=== PATIENT | female | born 1945 | race Native Hawaiian/Other Pacific Islander ===

== ENCOUNTER 2016-10-10 12:34 | Outpatient (CLI) | payer OTHER | END 2016-10-10 23:00 | disposition home or self-care (01) | LOC: CT 12:34 | DX: G81.94 Hemiplegia, unspecified affecting left nondominant side (principal) ==

== ENCOUNTER 2016-10-13 09:11 | Outpatient (CLI) | payer OTHER | END 2016-10-13 20:47 | disposition home or self-care (01) | LOC: MAMMO 09:11 | DX: Z12.31 Encounter for screening mammogram for malignant neoplasm of breast (principal) | CPT/HCPCS: G0202-TC ==

== ENCOUNTER 2016-11-07 12:15 | Outpatient (CLI) | payer OTHER | END 2016-11-07 14:15 | disposition home or self-care (01) | LOC: RAD 12:15 | DX: M79.605 Pain in left leg (principal); Z86.718 Personal history of other venous thrombosis and embolism ==

== ENCOUNTER → 2017-01-27 23:21 | Outpatient (CLI) | payer OTHER | END | disposition home or self-care (01) | LOC: AMB 23:21 | DX: Z04.3 Encounter for examination and observation following other accident (principal) ==

== ENCOUNTER 2017-06-25 17:02 | Outpatient (CLI) | payer OTHER | END 2017-06-25 17:17 | disposition short-term general hospital (02) | LOC: AMB 17:02 | DX: R42 Dizziness and giddiness (principal); R53.1 Weakness | CPT/HCPCS: A0425; A0427 ==

== ENCOUNTER 2017-11-21 08:27 | Outpatient (CLI) | payer OTHER | END 2017-11-21 08:43 | disposition short-term general hospital (02) | LOC: AMB 08:27 | DX: E11.65 Type 2 diabetes mellitus with hyperglycemia (principal); R26.89 Other abnormalities of gait and mobility; R53.1 Weakness | CPT/HCPCS: A0425; A0427 ==

== ENCOUNTER 2017-11-21 09:04 | Emergency (ER) | payer OTHER ==
[~2017-11-21] VITALS: Ht 147.3 cm; Wt 55.3 kg
[2017-11-21 09:11] VITALS: TEMP 97.3
[2017-11-21 09:27] LABS: PLATELET COUNT 183 K/uL (152-353)
[2017-11-21 09:52] LABS: POTASSIUM 4.8 mmol/L (3.6-5.2); SODIUM 132 mmol/L (136-145)
[2017-11-21 11:30] VITALS: BP 110/50
== END 2017-11-21 11:30 | disposition short-term general hospital (02) ==
LOC: ED 09:04
PROVIDERS: Emergency Medicine
DX: D53.9 Nutritional anemia, unspecified (principal); D50.8 Other iron deficiency anemias; N18.5 Chronic kidney disease, stage 5; I45.81 Long QT syndrome
CPT/HCPCS: 36415; 80053; 82550; 82553; 83615; 83735; 84484; 85027; 93005; 99283

== ENCOUNTER 2017-11-21 11:32 | Outpatient (CLI) | payer OTHER | END 2017-11-21 11:50 | disposition short-term general hospital (02) | LOC: AMB 11:32 | DX: D53.9 Nutritional anemia, unspecified (principal); D50.8 Other iron deficiency anemias; N18.5 Chronic kidney disease, stage 5; I45.81 Long QT syndrome | CPT/HCPCS: A0425; A0427 ==

== ENCOUNTER 2019-01-16 03:36 | Outpatient (CLI) | payer OTHER | END 2019-01-16 03:51 | disposition short-term general hospital (02) | LOC: AMB 03:36 | DX: R10.31 Right lower quadrant pain (principal); R11.2 Nausea with vomiting, unspecified | CPT/HCPCS: A0425; A0427 ==

== ENCOUNTER 2019-01-16 03:53 | Emergency (ER) | payer OTHER ==
[~2019-01-16] VITALS: Ht 162.6 cm; Wt 58.5 kg
[2019-01-16 03:53] VITALS: TEMP 97.2
[2019-01-16 04:34] LABS: PLATELET COUNT 190 K/uL (152-353)
[2019-01-16 04:45] LABS: POTASSIUM 3.7 mmol/L (3.6-5.2)
[2019-01-16 09:25] VITALS: BP 154/83
== END 2019-01-16 09:33 | disposition short-term general hospital (02) ==
LOC: ED 03:53
PROVIDERS: Internal Medicine
DX: N28.89 Other specified disorders of kidney and ureter (principal); R10.31 Right lower quadrant pain; R11.0 Nausea; N39.0 Urinary tract infection, site not specified
CPT/HCPCS: 36415; 80053; 81000; 85027; 87086; 87088; 96365; 96366; 96375; 96376; 99284; J1170; J2270; J2405; J3370; Q9963

== ENCOUNTER 2019-01-16 09:37 | Outpatient (CLI) | payer OTHER | END 2019-01-16 10:54 | disposition short-term general hospital (02) | LOC: AMB 09:37 | DX: R10.31 Right lower quadrant pain (principal); R11.0 Nausea; N39.0 Urinary tract infection, site not specified | CPT/HCPCS: A0425; A0427 ==

== ENCOUNTER 2019-06-25 16:48 | Emergency (ER) | payer OTHER ==
[~2019-06-25] VITALS: Ht 149.9 cm; Wt 52.6 kg
[2019-06-25 16:56] VITALS: BP 172/75; TEMP 98.1
== END 2019-06-25 17:19 | disposition home or self-care (01) ==
LOC: ED 16:48
DX: K92.2 Gastrointestinal hemorrhage, unspecified (principal)
CPT/HCPCS: 82272; 99282

== ENCOUNTER 2019-07-21 11:04 | Outpatient (CLI) | payer OTHER | END 2019-07-21 11:31 | disposition short-term general hospital (02) | LOC: AMB 11:04 | DX: K92.0 Hematemesis (principal); K92.1 Melena; R73.9 Hyperglycemia, unspecified; R94.31 Abnormal electrocardiogram [ECG] [EKG] | CPT/HCPCS: A0425; A0427 ==

== ENCOUNTER 2019-09-06 17:14 | Outpatient (CLI) | payer OTHER | END 2019-09-06 17:24 | disposition short-term general hospital (02) | LOC: AMB 17:14 | DX: R42 Dizziness and giddiness (principal); R11.0 Nausea; E16.1 Other hypoglycemia; K92.2 Gastrointestinal hemorrhage, unspecified | CPT/HCPCS: A0425; A0427 ==

== ENCOUNTER 2019-09-06 17:26 | Observation (INO) | payer OTHER ==
[~2019-09-06] VITALS: Ht 149.9 cm; Wt 51.8 kg
[2019-09-06] VITALS (8 sets, daily range): BP systolic 103–137; BP diastolic 45–60; TEMP 97.6; Ht 149.9 cm; Wt 51.8 kg
[2019-09-06 18:29] LABS: PLATELET COUNT 218 K/uL (152-353)
[2019-09-07] VITALS (13 sets, daily range): BP systolic 90–140; BP diastolic 39–77; TEMP 98–98.9
[2019-09-07 09:12] LABS: POTASSIUM 4.4 mmol/L (3.6-5.2)
== END 2019-09-07 10:45 | disposition home or self-care (01) ==
LOC: ED 17:26 → ICU 20:25
PROVIDERS: Emergency Medicine; ADMIT Family Medicine
PROC: 30233N1 Transfusion of Nonautologous Red Blood Cells into Peripheral Vein, Percutaneous Approach (ICD-10-PCS; principal; 2019-09-06)
PROC: 30233N1 Transfusion of Nonautologous Red Blood Cells into Peripheral Vein, Percutaneous Approach (ICD-10-PCS; 2019-09-07)
DX: D63.1 Anemia in chronic kidney disease (principal); E11.22 Type 2 diabetes mellitus with diabetic chronic kidney disease; I12.9 Hypertensive chronic kidney disease with stage 1 through stage 4 chronic kidney disease, or unspecified chronic kidney disease; N18.3 Chronic kidney disease, stage 3 (moderate); I25.2 Old myocardial infarction; I25.10 Atherosclerotic heart disease of native coronary artery without angina pectoris
CPT/HCPCS: 36415; 36430; 80053; 85014; 85018; 85027; 86850; 86900; 86901; 86922; 93005; 96360; 96361; 99220; 99285; G0378; J1815; P9016

== ENCOUNTER 2020-11-02 10:08 | Emergency (ER) | payer OTHER ==
[~2020-11-02] VITALS: Ht 149.9 cm; Wt 45.4 kg
[2020-11-02 10:47] LABS: PLATELET COUNT 355 K/uL (152-353)
[2020-11-02 10:52] LABS: POTASSIUM 4.5 mmol/L (3.6-5.2)
[2020-11-02 16:00] VITALS: BP 117/51; TEMP 98.4
== END 2020-11-02 16:00 | disposition short-term general hospital (02) ==
LOC: ED 10:08
PROVIDERS: Family Medicine
DX: I48.91 Unspecified atrial fibrillation (principal); R79.89 Other specified abnormal findings of blood chemistry; G93.89 Other specified disorders of brain; Z03.818 Encounter for observation for suspected exposure to other biological agents ruled out; F17.210 Nicotine dependence, cigarettes, uncomplicated; W18.39XA Other fall on same level, initial encounter; Y92.89 Other specified places as the place of occurrence of the external cause
CPT/HCPCS: 36415; 80053; 81000; 84484; 85027; 85379; 87635; 93005; 99283; 99284; U0003

== ENCOUNTER 2021-09-20 20:44 | Inpatient (IN) | payer OTHER ==
[~2021-09-20] VITALS: Ht 149.9 cm; Wt 54.2 kg
[2021-09-20 20:44] VITALS: BP 128/58; TEMP 98.3
[2021-09-20 21:24] LABS: PLATELET COUNT 311 K/uL (152-353)
[2021-09-20 21:32] LABS: POTASSIUM 4.2 mmol/L (3.6-5.2)
[2021-09-20 21:43] LABS: PARTIAL THROMBOPLASTIN TIME 24.7 SECONDS (24.5-33.6)
[2021-09-21] VITALS (8 sets, daily range): BP systolic 102–120; BP diastolic 38–46; TEMP 97.8–100.1; Ht 149.9 cm; Wt 54.2 kg
--- NOTE | 2021-09-21 04:58 | NUR ---
REVIEWED PATIENTS MEDICATONS THAT WHERE BROUGHT WITH HER FROM HOME. NAMES AND DOSAGE BEING WRITTEN ON MEDICATION RECONCILATION SHEET. FAXED TO PHARMACY.
--- NOTE | 2021-09-21 05:22 | NUR ---
PT IS RESTING QUIETLY. NO COMPLAINTS VOICED. MEDICATIONS WERE GIVEN BACK TO PATIENT. PT ALSO HAS VALUABLES WITH HER. 1 CELL PHONE, CLOTHING, SHIRT/PANTS/BRA. PT'S DEBIT CARD AND OTHER PERSONAL CARDS ARE PRESENT IN PT'S TOTE BAG AT HER BEDSIDE. THIS WAS WITNESSED BY Tyra HARRINGTON AND BRENDA VILLATORO LPN.
[2021-09-21 05:40] LABS: PLATELET COUNT 265 K/uL (152-353)
[2021-09-21 05:59] LABS: POTASSIUM 3.3 mmol/L (3.6-5.2)
--- NOTE | 2021-09-21 11:15 | NUR ---
09/21/21 1116 PT OUT OF BED TO BEDSIDE COMMODE X2 UNABLE TO VOID PT LOWER ABDOME DISTENDED STATES SHE FEELS LIKEMSHE HAS TO PEE BUT CANNOT.BED ALARM ON.CC
[2021-09-21] MEDS ORDERED: NEURONTIN 100M100 MG PO (11:35)
[2021-09-21] MEDS ORDERED: GABA300C2 PO (11:37)
[2021-09-21] MEDS ORDERED: ROSUVASTATIN CA20 MG PO (11:38)
[2021-09-21] MEDS ORDERED: ALPR0.5T24 PO (11:41)
[2021-09-21] MEDS ORDERED: CLOPIDOGREL75 MG PO (11:43)
[2021-09-21] MEDS ORDERED: CARV6.25 PO (11:51)
[2021-09-21] MEDS ORDERED: ROPINIROLE0.5 MG PO (11:51)
[2021-09-21] MEDS ORDERED: DICYCLOMINE HYD10 MG PO (11:52)
[2021-09-21] MEDS ORDERED: MEGESTROL AC40 MG PO (11:53)
[2021-09-21] MEDS ORDERED: NITR0.4S2 SL (11:54)
[2021-09-21] MEDS ORDERED: AMIODARONE HYD200 MG PO (11:56)
[2021-09-21] MEDS ORDERED: LEVO0.1T6 PO (11:57)
[2021-09-21] MEDS ORDERED: ENDOCET1 TA1 PO (11:58)
[2021-09-21] MEDS ORDERED: EDARBYCLOR PO (12:02)
[2021-09-21] MEDS ORDERED: DULOXETINE HCL30 MG PO (12:03)
--- NOTE | 2021-09-21 12:31 | NUR ---
09/21/21 1115 NOTIFIED OF PATEINT UNABLE TO VOID AFTER 2 ATTEMPTS LOWER ABDOMEN DISTENTION.NEW ORDER MAY INSERT FOELY CATHETER.CC
--- NOTE | 2021-09-21 13:35 | NUR ---
1328 [facility] CALLED TO SEE WHAT PATIENT TREATMENT PLAN IS FOR [facility]CRUM.[facility] STATED THEY WOULD FAX OVER INFORMATION FROM LAST VISIT AND TREATMENT.CC
--- NOTE | 2021-09-21 13:49 | NUR ---
1350 AWAKE ALERT RESTING IN BED LOOKING AT MAGAZINE RESP EVEN NONLABORED.BAKER CATHETER TO BEDSIDE DRAING CLEAR YELLOW URINE.CALL LIGHT WITHIN REACH.CC
--- NOTE | 2021-09-21 16:30 | NUR ---
09/21/21 1610 CLEANED WOUND TO SACRUM NORMAL SALINE APPLIED MEDHONEY TO AREA.COVERED WITH TEGADERM,GAUZE AND TEADERM.NO ODOR NO DRAINAGE.PT TOLERATED WELL.CC
--- NOTE | 2021-09-21 20:00 | NUR ---
FOOD SCIENCE TECHNICIAN IS IN WITH PT. PT IS IN LOW FOWLERS POSTION, FOOD SCIENCE TECHNICIAN WITH PCT MOVED PT US IN BED AND PT HAS BEEN ROTATED TO THE RIGHT SIDE AND PROPPED WITH PILLOWS TO KEEP PT OFF SACRAL AREA. PT HAD SMALL BOWEL MOVEMENT THAT HAS BEEN CHANGED. PT TOOK NIGHT MEDICATIONS WITHOUT ANY DIFFICULTY. PT DENIES ANY PAIN OR NEEDS AT THIS TIMEE. WILL COTNINUE TO MONITOR.
--- NOTE | 2021-09-21 21:24 | NUR ---
PT HAS HAD 3 EPISODES OF INCONTINENT DIARRHEA. PT IS NOW REQUESTING FOR SOMETHING TO HELP WITH THE DIARRHEA. YARN EXAMINER HAS CONTACTED ER DOCTOR AND RECIEVED AN ORDER FOR IMODIUM ONE DOSE AND STOOL SAMPLE.
--- NOTE | 2021-09-21 22:36 | NUR ---
PT REPORTED TO EMPLOYEE RELATIONS DIRECTOR THAT IT IS COMMON FOR HER TO GET DIARREA WHILE AT HOME. TO TREAT THE DIARRHEA AT HOME SHE TAKES 3 IMMODIUMS. PT JUST RECIEVED THE ONE TIME DOSE OF IMMODIUM. EMPLOYEE RELATIONS DIRECTOR STARTED A NEW IV ON PT TO THE LT FA WITHOUT ANY DIFFICULTY.
[2021-09-22] VITALS: BP 128/39; TEMP 99.2
[2021-09-22 04:00] VITALS: BP 106/35; TEMP 100.1
[2021-09-22 04:24] LABS: PLATELET COUNT 194 K/uL (152-353)
--- NOTE | 2021-09-22 04:35 | NUR ---
PT HAS TEMP OF 100.1F. PRN DOSE OF ACETAMINOPHEN HAS BEEN ADMINISTERED.
[2021-09-22 04:38] LABS: POTASSIUM 4.7 mmol/L (3.6-5.2)
--- NOTE | 2021-09-22 06:00 | NUR ---
KIRILL FROM LAB CALLED ABOUT VANC TROUGH. KIRILL STATED THAT A LABEL WAS NEVER PRINTED TO THE LAB THEREFORE THEY WERE UNAWARE OF THE ORDERED TROUGH. KIRILL IS GOING TO CANCEL THE TROUGH AND HAVE IT REORDERED IF NEEDED. MANAGER OF HUMAN RESOURCES WILL RELAY MESSAGE TO DAYSHIFT.
[2021-09-22 08:00] VITALS: BP 107/40; TEMP 98.8
[2021-09-22 12:00] VITALS: BP 123/38; TEMP 98.7
[2021-09-22 16:03] VITALS: BP 123/34; TEMP 98.8
[2021-09-22 20:00] VITALS: BP 135/42; TEMP 98.5
[2021-09-23] VITALS (7 sets, daily range): BP systolic 132–166; BP diastolic 42–54; TEMP 98–99
[2021-09-23 05:11] LABS: PLATELET COUNT 175 K/uL (152-353)
[2021-09-23 05:26] LABS: POTASSIUM 4.3 mmol/L (3.6-5.2)
--- NOTE | 2021-09-23 06:18 | NUR ---
PT IN BED AWAKE RESTING QUITELY. PT RESPIRATION EVEN AND UNLABORED. PT REQUIRES ASSISTANCE WITH ADLS AND TOLITERING. PT HAS HAD MUTIPLE BOWEL MOVEMENTS THROUGHOUT THE SHIFT. STOOL LOOSE. PT ACCEPTED HS MEDICATION WITHOUT COMPLICATIONS. PT VOICED NO COMPLINTS THOUGTHOUT THE SHIFT. NO ACUTE DISTRESS NOTED.
--- NOTE | 2021-09-23 13:00 | NUR ---
PATIENT D/C IV BY ACCIDENT ATTEMPTING TO USE BSC. PATIENT GOT BM ON CHAIR, FLOOR, BSC, AND SELF. PATIENT CLEANED AND ROOM CLEANED. NEW IV INITIATED.
[2021-09-24 04:22] VITALS: BP 133/47; TEMP 98.7
[2021-09-24 05:02] LABS: PLATELET COUNT 194 K/uL (152-353)
[2021-09-24 05:22] LABS: POTASSIUM 4.3 mmol/L (3.6-5.2)
[2021-09-24 08:00] VITALS: BP 138/38
--- NOTE | 2021-09-24 09:30 | NUR ---
DRESSING CHANGE AT THIS TIME. CLEANED WITH NORMAL SALINE. APPLIED MEDIHONEY, GAUZE AND COVEREED WITH DUODERM FOR PADDING.
--- NOTE | 2021-09-24 10:00 | NUR ---
PATIENT COMPLAINS OF BAKER FEELING UNCOMFORTABLE. BALLOON DRAINED OF NS. REPOSITIONED BAKER AND REINFLATED BALLOON. PATIENT COMFORTABLE AT THIS TIME.
--- NOTE | 2021-09-24 11:30 | NUR ---
INFORMATION DEVELOPER NOTICED PATIENT FACE SWELLING ON RIGHT SIDE OF FACE. NOTIFIED DR. BROWER. VERBAL ORDER TO D/C FLUIDS AT THIS TIME.
[2021-09-24 12:00] VITALS: BP 141/49; TEMP 97.6
[2021-09-24 16:06] VITALS: BP 142/40; TEMP 98.6
[2021-09-24 20:05] VITALS: BP 178/61; TEMP 98.9
--- NOTE | 2021-09-24 20:22 | NUR ---
HOTEL ATTENDANT IS IN WITH PT, PT IS LAYING IN THE LOW FOWLERS POSITION WATCHING TV. PT WAS CAPABLE OF ROLLING WITHOUT MUCH DIFFICULTY FOR ASSESSMENT OF LUNG SOUNDS. PT TOOK NIGHT MEDICATIONS WITHOUT ANY DIFFICULTY. HOTEL ATTENDANT ADMINISTER 4 UNITS OF INSULIN TO PT FOR A BLOOD GLUCOSE OF 205. THE URINE IN THE PT'S CATHETER HAS CLEARED UP WITH NO SEDIMENT PRESENT NOW, URINE IS NOW CLEAR. IV IS FLUSHING WITH NO DIFFICULTY, NO REDNESS OR EDEMA IS PRESENT AROUND IV SITE. PT IS SHOWING NO SIGNS OF DISTRESS AT THIS TIME AND DENIES ANY NEEDS.
[2021-09-24 23:42] VITALS: BP 140/50; TEMP 98.3
--- NOTE | 2021-09-25 02:07 | NUR ---
PT CALLED FOR A CUP OF COFFEE. PT IS SITTING UP IN THE BED WATCHING TV. NO SIGNS OF DISTRESS ARE NOTED.
[2021-09-25 06:44] LABS: POTASSIUM 3.9 mmol/L (3.6-5.2)
[2021-09-25 06:52] LABS: PLATELET COUNT 198 K/uL (152-353)
[2021-09-25 08:00] VITALS: BP 130/39; TEMP 98.5
--- NOTE | 2021-09-25 09:45 | NUR ---
DURING AM SHIFT, PATIENT CONFIDED IN WARPER CREELER THAT BROTHER IN LAW IS SELLING HER HOME TOMORROW AND SHE NEEDS TO BE RELEASED FROM THE HOSPITAL TO PREVENT THE SALE. WARPER CREELER INFORMED DR. BROWER OF PATIENT'S CONCERN. PHYSICIAN ADVISED PATIENT REQUIRES ADDITIONAL DAYS OF ANTIBIOTIC THERAPY, WARPER CREELER REPORTED SAME TO PATIENT. PATIENT BECAME MORE UPSET AND ADVISED SHE "MUST LEAVE TODAY WITH OR WITHOUT THE DOCTOR'S DISCHARGE", PT DEMANDED TO HAVE BAKER REMOVED AND CALLED A NEIGHBOR REQUESTING PATIENT BE TRANSFERRED HOME. WARPER CREELER REQUESTED PATIENT TO STAY UNTIL ANTIBIOTIC THERAPY IS ADMINISTERED TODAY, PT AGREED TO DO SO. PHYSICIAN NOTIFIED OF SAME.
[2021-09-25 12:00] VITALS: BP 121/38; TEMP 98.9
--- NOTE | 2021-09-25 12:50 | NUR ---
ANTIBIOTIC INFUSION BEGAN. DRESSING TO SACRUM COMPLETED PER PHYSICIAN ORDERS. PATIENT CONTINUES TO REQUEST TO LEAVE FACILITY TODAY DUE TO HOME BEING SOLD BY BROTHER IN LAW.
--- NOTE | 2021-09-25 14:10 | NUR ---
PATIENT SIGNED AMA DOCUMENT AFTER BEING EXPLAINED TO PATIENT. PATIENT DENIES ANY QUESTIONS OR C/O AT THIS TIME. PATIENT ENCOURAGED TO FOLLOW UP WITH PROVIDERS, PT V/O UNDERSTANDING.
--- NOTE | 2021-09-25 14:20 | NUR ---
INFUSION COMPLETED, IV D/C'D WITH TIP IN TACT. PATIENT TRANSFERRED TO [facility] AND AMBULATED TO [facility] WITHOUT DIFFICULTY. NAD NOTED WITH PATIENT AT THIS TIME.
== END 2021-09-25 14:20 | disposition left against medical advice (07) | DRG 872 ==
LOC: ED 20:44 → MED/SURG 22:30
PROVIDERS: ADMIT Hospitalist; ATTEND Internal Medicine Endocrinology, Diabetes & Metabolism
DX: A41.89 Other specified sepsis (principal); N30.00 Acute cystitis without hematuria; C34.90 Malignant neoplasm of unspecified part of unspecified bronchus or lung; N17.8 Other acute kidney failure; I96 Gangrene, not elsewhere classified; B96.20 Unspecified Escherichia coli [E. coli] as the cause of diseases classified elsewhere; I25.10 Atherosclerotic heart disease of native coronary artery without angina pectoris; E78.49 Other hyperlipidemia; D64.89 Other specified anemias; R80.8 Other proteinuria; E83.51 Hypocalcemia; I25.2 Old myocardial infarction; E11.22 Type 2 diabetes mellitus with diabetic chronic kidney disease; I12.9 Hypertensive chronic kidney disease with stage 1 through stage 4 chronic kidney disease, or unspecified chronic kidney disease; N18.32 Chronic kidney disease, stage 3b; L89.152 Pressure ulcer of sacral region, stage 2
CPT/HCPCS: 36415; 80048; 80053; 80202; 81000; 82272; 82947; 83605; 85027; 85610; 85730; 87015; 87040; 87045; 87077; 87086; 87088; 87186; 87635; 87899; 93005; 94664; 94760; 96365; 96375; 99284; J1650; J1815; J1885; J1956; J2405; J3370; J3490; U0003